=== PATIENT | male | born 1980 | race Caucasian/White ===

== ENCOUNTER 2018-01-05 21:14 | Emergency (ER) | payer OTHER ==
--- NOTE | 2018-01-05 22:31 | EDM.PDOC ---
ED HPI GENERAL MEDICAL PROBLEM - General Chief Complaint: Lower Extremity Injury/Pain Stated Complaint: RIGHT FOOT POSSIBLE BROKEN TOE AND KNEE Time Seen by Provider: 01/05/18 22:04 Source of Information: Reports: Patient History Limitations: Reports: No Limitations - History of Present Illness INITIAL COMMENTS - FREE TEXT/NARRATIVE: 37-year-old male presents for evaluation and treatment of injury to the right great toe. Patient reports he was at work. States he slipped and hit his foot and right knee on a fridge. This occurred earlier today. Since then he has had pain with movement of the great toe and reports decreased range of motion. He reports numbness and tingling to the great toe. Reports pain with ambulation. He has bruising and swelling to the great toe. He also has an abrasion to the right knee. 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 Onset: Today Location: Reports: Lower Extremity, Right Right Feet Pain Score (Numeric/FACES): 4 - Related Data Allergies Allergy/AdvReac Type Severity Reaction Status Date / Time acetaminophen [From Vicodin] Allergy Itching Verified 01/05/18 21:26 bee venom protein (honey bee) Allergy Itching Verified 01/05/18 21:26 hydrocodone [From Vicodin] Allergy Itching Verified 01/05/18 21:26 Penicillins Allergy Anaphylactic Verified 01/05/18 21:26 Shock Home Meds: Home Meds Acetaminophen with Codeine [Tylenol with Codeine #3 Tablet] 1 each PO Q6HR PRN # 10 tablet 01/05/18 [Rx] Ibuprofen [Ibu] 800 mg PO Q6HR PRN #20 tablet 01/05/18 [Rx] Past Medical History HEENT History: Reports: Impaired Vision Other HEENT History: Wears glasses Musculoskeletal History: Reports: Fracture - Infectious Disease History Infectious Disease History: Reports: Chicken Pox, Mumps Review of Systems - Review of Systems Review Of Systems: See Below Musculoskeletal: Reports: Foot Pain (right great toe), Joint Pain (right knee), Joint Swelling (right great toe) Skin: Reports: Bruising (right great toe), Wound (abrsion to the right knee) Neurological: Reports: Numbness (right great toe), Difficulty Walking. Denies: Tingling ED EXAM, GENERAL - Physical Exam Exam: See Below Exam Limited By: No Limitations General Appearance: Alert, WD/WN, No Apparent Distress Respiratory/Chest: No Respiratory Distress Cardiovascular: Normal Peripheral Pulses, Regular Rate, Rhythm Peripheral Pulses: 2+: Posterior Tibial (L), Posterior Tibial (R), Dorsalis Pedis (L), Dorsalis Pedis (R) Extremities: Non-Tender (right knee, no swelling to the right knee), Normal Capillary Refill, Joint Swelling (right great toe), Limited Range of Motion (no ROM to the right great toe), Other (medial right great toe). No: Increased Warmth Neurological: Alert, Oriented, Normal Cognition, Sensory/Motor Deficit (reports no sensation to light touch to the right great toe) Psychiatric: Normal Affect, Normal Mood Skin Exam: Warm, Dry, Intact, Normal Color, Wound/Incision (superficial abrasion to the right great toe approximately 2cm in diameter) Course - Vital Signs Last Recorded V/S: Last Vital Signs Temp 98.6 F 01/05/18 21:26 Pulse 68 01/05/18 21:26 Resp 18 01/05/18 21:26 BP 144/86 H 01/05/18 21:26 Pulse Ox 100 01/05/18 21:26 - Orders/Labs/Meds Meds: Medications Discontinued Medications Generic Name Dose Route Start Last Admin Trade Name Freq PRN Reason Stop Dose Admin Ibuprofen 800 mg 01/05/18 23:08 01/05/18 23:12 Motrin PO 01/05/18 23:09 800 mg ONETIME ONE Administration - Radiology Interpretation Free Text/Narrative:: xray shows a nondisplaced fracture of the right proximal phalnex - Re-Assessments/Exams Free Text/Narrative Re-Assessment/Exam: 01/05/18 22:33 Reviewed the xray results with the patient. I will have him ice and elevate. Pain medication given in needed. Toes trevon tapped. Unfortunately his feet are to large for post-op shoes in ED. Instructed to go to [employer] to purchase one. Discharge instructions as documented. Departure - Departure Time of Disposition: 22:33 Disposition: Home, Self-Care 01 Condition: Fair Clinical Impression: Fracture of proximal phalanx of toe of right foot - Discharge Information *PRESCRIPTION DRUG MONITORING PROGRAM REVIEWED*: No *COPY OF PRESCRIPTION DRUG MONITORING REPORT IN PATIENT RAMÍREZ: No Prescriptions: Acetaminophen with Codeine [Tylenol with Codeine #3 Tablet] 1 each PO Q6HR PRN # 10 tablet PRN Reason: Pain Ibuprofen [Ibu] 800 mg PO Q6HR PRN #20 tablet PRN Reason: Pain Instructions: Toe Fracture, [id number] Referrals: PCP,None [Primary Care Provider] - Forms: ED Department Discharge, ED Return to Work/School Form Additional Instructions: Ice and elevate the foot. Wear the postop shoe and trevon tape toes 1 and 2 together. Ibuprofen 800 mg every 8 hours as needed for pain. For pain not relieved by ibuprofen, may take Tylenol #3 one tablet every 6 hours. Tylenol with Codeine is habit-forming, and take as little as needed for pain. Do not drive or operate machinery within 10 hours of taking prescription narcotic pain medication. Follow-up with orthopedics within [address] Cloud. Call [phone] to schedule with him. Please return to the ER if hyour symptoms change or worsen.
[2018-01-05] MEDS ORDERED: Ibuprofen 800 MG Tab PO ONE (23:08)
--- NOTE | 2018-01-08 09:37 | CR ---
Right foot: Four views of the right foot were obtained. Comparison: No prior foot exam. Fracture is identified within the proximal phalanx of the first toe. Fracture is mildly comminuted but remains close to anatomic in alignment. Soft tissue swelling is present. No additional fracture or other bony abnormality is seen. Impression: 1. Proximal phalanx fracture within the first toe. Soft tissue swelling. 2. No additional abnormality is appreciated on right foot exam. Diagnostic code #3
== END 2018-01-05 23:14 | disposition home or self-care (01) ==
LOC: JD.ED 21:14
DX: S92.411A Displaced fracture of proximal phalanx of right great toe, initial encounter for closed fracture (principal); Y99.0 Civilian activity done for income or pay; W01.198A Fall on same level from slipping, tripping and stumbling with subsequent striking against other object, initial encounter; Z88.0 Allergy status to penicillin; Z88.6 Allergy status to analgesic agent; Z91.030 Bee allergy status
CPT/HCPCS: 73630; 99283; A9270